=== PATIENT | female | born 1930 ===

== ENCOUNTER 2022-06-23 09:25 | Outpatient (CLI) | payer OTHER | END 2022-06-23 09:33 | disposition home or self-care (01) | LOC: RX STUDY 09:25 | PROVIDERS: ATTEND Specialist | DX: R13.14 Dysphagia, pharyngoesophageal phase (principal); M49.84 Spondylopathy in diseases classified elsewhere, thoracic region; M49.82 Spondylopathy in diseases classified elsewhere, cervical region; M49.86 Spondylopathy in diseases classified elsewhere, lumbar region ==

== ENCOUNTER 2022-06-25 08:26 | Outpatient (CLI) | payer OTHER | END 2022-06-25 08:35 | disposition home or self-care (01) | LOC: TOM 08:26 | PROVIDERS: ATTEND Specialist | DX: C71.9 Malignant neoplasm of brain, unspecified (principal); J32.8 Other chronic sinusitis | CPT/HCPCS: 70486; 70553; Q9965 ==